=== PATIENT | female | born 1965 | race Asian ===

== ENCOUNTER 2017-07-07 17:43 | Emergency (ER) | END 2017-07-07 18:47 | disposition home or self-care (01) ==

== ENCOUNTER 2018-08-05 21:32 | Emergency (ER) | payer MEDICAID, OTHER ==
[~2018-08-05] VITALS: Ht 172.7 cm; Wt 101.0 kg
[~2018-08-05 21:32] MED LIST: HYDR-843 PO; TRIA15CR55 TOP
[2018-08-05 21:35] VITALS: PULSE 90; RESP 16; Ht 172.7 cm; Wt 101.0 kg
--- NOTE | 2018-08-06 00:14 | ERD ---
ER Documentation Chief Complaint Chief Complaint rash to feet/forearms [id number] HPI The patient is a 52-year-old female, presenting to the ER because of chronic rash in her bilateral upper extremity and bilateral lower extremity for 1 month intermittently, previously resolved with steroid injection. She has been scr atching on them, denies any pruritus on her chest abdomen or back. She has been using a new soap for the last 3 weeks, denies fever, chills, neck pain, chest pain, dyspnea, abdominal pain, vomiting, dysuria. She does not smoke nor drink Past medical history: Obesity, venous stasis past surgical history: Hysterectomy ROS All systems reviewed and are negative except as per history of present illness. Medications Home Meds Active Scripts Amlodipine Besylate* (Norvasc*) 5 Mg Tablet, 5 MG PO DAILY for 14 Days, TAB Prov:JOY FOURNIER MD 08/06/18 Methylprednisolone* (Medrol* DOSE PACK) 4 Mg/Dose-Pack Tab.ds.pk, 4 MG PO . DIRECTED, #1 PACKET Prov:JOY FOURNIER MD 08/06/18 Diphenhydramine Hcl* (Benadryl*) 50 Mg Cap, 50 MG PO Q6H PRN for ITCHING/RASH, #30 CAP Prov:JOY FOURNIER MD 08/06/18 Triamcinolone Acetonide* (Kenalog*) 0.1%-15GM Cr, 1 APPLIC TOP TID for 7 Days, #1 TUB Prov:JOY FOURNIER MD 08/06/18 Hydroxyzine Hcl* (Hydroxyzine Hcl*) 25 Mg Tablet, 25 MG PO Q8H PRN for ITCHING, #30 TAB Prov:TOÑO REDMAN NP 07/07/17 Triamcinolone Acetonide (Triamcinolone Acetonide) 0.1% - 15 Gm Cream.gm., 1 APPLIC TOP BID, #1 TUB Prov:TOÑO REDMAN NP 07/07/17 Allergies Allergies: Coded Allergies: No Known Drug Allergy (Verified Allergy, Mild, 01/29/14) PMhx/Soc History of Surgery: No Anesthesia Reaction: No Hx Neurological Disorder: No Hx Respiratory Disorders: No Hx Cardiac Disorders: No Hx Psychiatric Problems: No Hx Miscellaneous Medical Probl: Yes (s/p ex lap, disection of bilateral ureters, total hysterectomy, oophorectom) Hx Alcohol Use: No Hx Substance Use: No Hx Tobacco Use: No Physical Exam Vitals Vital Signs Date Temp Pulse Resp B/P (MAP) Pulse Ox O2 O2 Flow FiO2 Time Delivery Rate 08/06/18 160/94 03:18 (116) 08/05/18 204/117 23:34 (146) 08/05/18 98.8 90 16 197/99 97 21:35 (131) Physical Exam Const: No acute distress. Head: Atraumatic. Eyes: Normal Conjunctiva. ENT: Normal External Ears, Nose and Mouth. Neck: Full range of motion. No meningismus. Resp: Clear to auscultation bilaterally. Cardio: Regular rate and rhythm. Abd: Soft, non distended, normal bowel sounds, non tender. Skin: No petechiae or rashes. Back: No midline or flank tenderness. Ext: Chronic excoriation and discoloration of upper and lower extremity, no vesicle/pustules Neur: Awake and alert. No focal deficit Psych: Normal Mood and Affect. Results 24 hrs Current Medications Medications Dose Sig/Zan Start Time Status Last (Trade) Ordered Route PRN Stop Time Admin Dose Reason Admin Clonidine 0.1 mg ONCE ONCE 08/06/18 DC 08/06/18 ([facility]) PO 01:30 01:12 08/06/18 01:31 Clonidine 0.1 mg ONCE ONCE 08/06/18 DC 08/06/18 ([facility]) PO 03:00 02:51 08/06/18 03:01 Procedures/MDM MEDICAL MAKING DECISION: The patient is a 52-year-old female, presenting to the ER because of acute on chronic nonspecific dermatitis, acute hypertensive urgency. She was treated with clonidine 0.1 mg p.o. every 1 hour with good blood pressure response, is stable for outpatient follow-up The differential diagnoses considered include but are not limited to venous stasis, chronic dermatitis, cellulitis, anxiety induced dermatitis Departure Diagnosis: Primary Impression: Rash and other nonspecific skin eruption Additional Impression: Hypertensive urgency Condition: Good Comments He was discharged with Norvasc, Kenalog cream, Benadryl, Medrol Dosepak The patient's blood pressure was elevated (>120/80) but appears stable without evidence of hypertension emergency or urgency. The patient was counseled about the risks of hypertension and urged to pursue outpatient monitoring and therapy within a week with their primary care physician. I discussed the findings with the patient. I advised the patient to follow-up with the primary physician in about 2-3 days for reevaluation and referral to conservation assistant, sooner if needed and return if any concern. Disclaimer: Inadvertent spelling and grammatical errors are likely due to EHR/dictation software use and do not reflect on the overall quality of patient care. Also, please note that the electronic time recorded on this note does not necessarily reflect the actual time of the patient encounter. JOY FOURNIER MD August 06, 2018 00:14
[2018-08-06] MEDS ORDERED: BEN50 PO (00:57)
[2018-08-06] MEDS ORDERED: TRIA15CR55 TOP (00:57)
[2018-08-06] MEDS ORDERED: MED4DP PO (00:58)
[2018-08-06 03:18] VITALS: BP 160/94
[2018-08-06] MEDS ORDERED: AMLO5TAB4 PO (03:20)
== END 2018-08-06 03:25 | disposition home or self-care (01) ==
LOC: E/R 21:32
DX: R21 Rash and other nonspecific skin eruption (principal); I16.0 Hypertensive urgency
CPT/HCPCS: 99283